=== PATIENT | male | born 1950 | race Caucasian/White ===

== ENCOUNTER → 2017-02-01 | Outpatient (CLI) | payer MEDICARE ==
--- NOTE | 2017-02-02 11:04 | RAD ---
Procedure: XR CHEST 2 VIEWS Exam Date: 02/01/2017 Ordering Provider: Raeann Gunn Clinical Indication: ESSENTIAL (PRIMARY) HYPERTENSION Comparison: 09/14/2009 Findings: Cardiac silhouette: Normal Pulmonary vasculature : Normal Mediastinal contour: Normal Aortic contour: Aortic calcification Focal lung consolidation: None Pleural effusion: None Pneumothorax: None Acute bony or soft tissue abnormality: None Impression: 1. No acute abnormalities in the chest. Electronically signed by: Lance Shah MD 02/02/2017 11:03 AM CDT
== END ==
LOC: LAB.O 09:16
PROVIDERS: ATTEND Nurse Practitioner Family
DX: I10 Essential (primary) hypertension (principal); F19.10 Other psychoactive substance abuse, uncomplicated; Z12.5 Encounter for screening for malignant neoplasm of prostate; Z13.220 Encounter for screening for lipoid disorders; Z13.29 Encounter for screening for other suspected endocrine disorder
CPT/HCPCS: 36415; 71020; 80053; 80061; 84443; 85025; 86803; 93005; G0103

== ENCOUNTER → 2017-04-10 | Outpatient (CLI) | payer MEDICARE | END | disposition home or self-care (01) | LOC: YCFC.O 08:28 | PROVIDERS: ATTEND Nurse Practitioner Family | DX: E03.9 Hypothyroidism, unspecified (principal) ==

== ENCOUNTER → 2018-05-16 | Outpatient (CLI) | payer MEDICARE | LOC: YCFC.O 08:37 | PROVIDERS: ATTEND Nurse Practitioner Family | DX: E03.9 Hypothyroidism, unspecified (principal); I10 Essential (primary) hypertension; Z12.5 Encounter for screening for malignant neoplasm of prostate | CPT/HCPCS: 36415; 80053; 84439; 84443; 85025; G0103 ==

== ENCOUNTER → 2018-05-28 | Outpatient (CLI) | payer MEDICARE | LOC: LAB.O 09:17 | PROVIDERS: ATTEND Nurse Practitioner Family | DX: R97.20 Elevated prostate specific antigen [PSA] (principal) ==

== ENCOUNTER → 2018-08-07 | Outpatient (CLI) | payer MEDICARE ==
--- NOTE | 2018-08-07 15:03 | RAD ---
EXAM DESCRIPTION: Abdomen 1 View CLINICAL HISTORY: 68 years Male, ABD PAIN COMPARISON: None. TECHNIQUE: 1 view of the abdomen was performed. FINDINGS: Multiple air distended bowel loops are identified with no evidence of bowel obstruction. Small amount of fecal material is identified. No abnormal calcifications are noted. IMPRESSION: No acute abnormality is noted in the abdomen. Electronically signed by: Shannan De La Torre MD 08/07/2018 3:01 PM [employer]
== END ==
LOC: LAB.O 13:17
PROVIDERS: ATTEND Family Medicine
DX: R53.83 Other fatigue (principal); R10.9 Unspecified abdominal pain; D64.9 Anemia, unspecified; I10 Essential (primary) hypertension; F17.200 Nicotine dependence, unspecified, uncomplicated; D51.9 Vitamin B12 deficiency anemia, unspecified; D55.0 Anemia due to glucose-6-phosphate dehydrogenase [G6PD] deficiency

== ENCOUNTER → 2018-09-21 | Outpatient (CLI) | payer MEDICARE, OTHER ==
--- NOTE | 2018-09-21 14:23 | CT ---
Procedure: CT LUNG SCREENING Exam Date: 09/21/2018 Ordering Provider: Cristopher Argueta Clinical Indication: HISTORY OF TOBACCO DEPENDENCY This patient meets eligibility criteria for low-dose CT lung cancer screening. Comparison: 02/01/2017 chest x-ray. Technique: Using a multislice scanner, sequential helical axial imaging was obtained in the thorax, 2.5 mm thickness, 2.5 mm separation, from the level of the thoracic inlet through the lung bases without IV contrast. A low dose protocol was utilized: CTDI: 1.76 mGy. 120. kVp. 45 mA. 2D sagittal and coronal reconstructed images, 6.0 mm thickness, were obtained. This exam was performed according to our departmental dose optimization program which includes use of automated exposure control, adjustment of the mA and/or kV according to patient size and/or use of iterative reconstruction technique. Nodule measurements under 10 mm are given as mean value of 3 axes diameters. FINDINGS: Lungs and large airways: 4 mm solid nodule versus focal pleural thickening posterior medial right lung apex on axial series 2, image 12. 2 mm calcified nodules associated with the lateral mid right horizontal fissure. No abnormal nodule, no mass, no focal infiltrate. Pleura and space: Bilateral pleural thickening with no effusion or pneumothorax. Mediastinum and clara: evaluation limited by low dose technique and lack of IV contrast. No enlarged lymph nodes or soft tissue masses. Heart and great vessels: Atherosclerotic calcifications of the aortic arch, coronary arteries, and descending thoracic aorta. Chest wall, lower neck, axillae: Evaluation also limited by same factors as described above. Negative. Upper abdomen: No free fluid or air in the included peritoneal space. Included adrenal glands and spleen normal size and density. Gallbladder partially visualized. Atherosclerotic calcifications of the proximal abdominal aorta. Osseous structures: Evaluation limited by low dose MIP technique. Spondylosis at multiple levels of thoracic spine. Bilateral arthrosis glenohumeral joints and sternoclavicular joints. IMPRESSION: 4 mm solid nodule in the right lung apex versus focal right apical pleural nodule. No abnormal nodules, masses, or focal infiltrates. Bilateral pleural thickening. [facility] Best Practice recommendations:. Please see below for Lung RADS category and FOLLOW-UP.* *Lung RADS category CATEGORY 2- Nodules with a very low likelihood (less than 1%) of becoming a clinically active cancer due to size or lack of growth. Nodules: Solid or part solid nodule(s) less than 6mm, new solid nodule less than 4mm. FOLLOW-UP: Continue annual screening with a Low Dose Chest CT in 12 months for re-evaluation. Electronically signed by: Alton Pena MD 09/21/2018 2:21 PM [facility]
== END ==
LOC: CT 10:00
PROVIDERS: ATTEND Family Medicine
DX: Z87.891 Personal history of nicotine dependence (principal); F17.218 Nicotine dependence, cigarettes, with other nicotine-induced disorders; R91.1 Solitary pulmonary nodule

== ENCOUNTER 2018-10-31 05:37 | Day surgery (SDC) | payer MEDICARE ==
[2018-10-31] MEDS ORDERED: LACTATED RINGERS 1,000 ML ONE (07:22)
[2018-10-31] MEDS: LACTATED RINGERS 1,000 ML IVS ONE ×2 (07:40→08:59)
[2018-10-31] MEDS ORDERED: fentaNYL CITRATE INJ 50 MCG/ML AMP ONE (07:59)
[2018-10-31 09:49] VITALS: BP 148/80; TEMP 97.9; O2SAT 99
[2018-10-31] MEDS ORDERED: LIDOCAINE 1% 10 ML VIAL INJ ONE (10:00)
[2018-10-31] MEDS ORDERED: PROPOFOL 200 MG/20 ML VIAL IV ONE (10:00)
--- NOTE | 2018-10-31 10:30 | OP ---
DATE OF PROCEDURE: 10/31/18 PREOPERATIVE DIAGNOSIS: 1. Iron deficiency anemia related to chronic blood loss. 2. Change in bowel habits. 3. Hematochezia. POSTOPERATIVE DIAGNOSIS: 1. Hemorrhagic gastritis. 2. Sigmoid and descending colonic diverticulosis. 3. Colonic polyps. 4. Internal hemorrhoids. PROCEDURE: 1. Esophagogastroduodenoscopy. 2. Colonoscopy. SURGEON: Glenn Hernandes MD ANESTHESIA: Monitored anesthesia care. ESTIMATED BLOOD LOSS: Less than 5 mL. COMPLICATIONS: None. PROCEDURE: The patient was placed in the left lateral decubitus position. A time-out was performed. After deep sedation was achieved, the Olympus standard upper endoscope was inserted through the oropharynx, into the proximal esophagus and advanced to the second portion of the duodenum under direct visualization. The endoscope was then progressively withdrawn, the duodenum, stomach and esophageal lumen were evaluated. Retroflexion was performed in the stomach. The endoscope was then withdrawn. The stretcher was rotated 180 degrees and we proceeded with the colonoscopy. A digital rectal exam was performed The Olympus adult colonoscope was inserted through anus into the rectum and advanced to the cecum under direct visualization. The terminal ileum was intubated. Photodocumentation of the terminal ileum, appendiceal orifice and ileocecal valve was performed. The endoscope was then progressively withdrawn and the total colonic lumen evaluated. Retroflexion was performed in the rectum. The patient's bowel preparation was good. The endoscope was then withdrawn and the procedure terminated. The patient tolerated the procedure well with no immediate complications. EGD FINDINGS: 1. The esophagus was normal. 2. Gastritis characterized by patchy mucosal edema, erythema and punctate areas of oozing were seen throughout the gastric body and antrum. The oozing was minimal and very mild. Random gastric biopsies were taken to rule out H. pylori. 3. The duodenum, including the bulb and first and second portions were unremarkable. COLONOSCOPY FINDINGS: 1. One sessile polyp measuring 5 mm was seen in the transverse colon. This polyp was removed with a cold snare and retrieved for pathology. 2. Two polyps were found in the sigmoid colon, both sessile, ranging in size from 3 to 6 mm. The polyps were removed with a cold snare and retrieved for pathology. 3. Severe diverticulosis was seen in the sigmoid colon, mild to moderate diverticulosis was seen in the descending colon. No evidence of bleeding or inflammation was noted. 4. Grade 2 non-bleeding internal hemorrhoids were seen upon retroflexion in the rectum. IMPRESSION: 1. Gastritis with mild oozing, biopsied. 2. Moderate to severe left sided diverticulosis. 3. Colonic polyps, removed. 4. Non-bleeding grade 2 internal hemorrhoids. RECOMMENDATIONS: 1. Okay to discharge home once the patient meets discharge criteria. 2. Resume prior diet. 3. Resume home medications. 4. Start once daily oral proton pump inhibitor such as Prilosec 20 mg once daily [id number]. 5. Await pathology results. 6. Repeat colonoscopy in 3 to 5 years depending on pathology results. 7. Followup with in GI clinic with Dr. Hernandes in 2 months. #[id number] [facility]
== END 2018-10-31 09:20 | disposition home or self-care (01) ==
LOC: AMB 05:37
PROVIDERS: ATTEND Internal Medicine Gastroenterology
DX: D50.0 Iron deficiency anemia secondary to blood loss (chronic) (principal); K29.51 Unspecified chronic gastritis with bleeding; D12.5 Benign neoplasm of sigmoid colon; D12.3 Benign neoplasm of transverse colon; K63.5 Polyp of colon; K57.30 Diverticulosis of large intestine without perforation or abscess without bleeding; K64.1 Second degree hemorrhoids; I10 Essential (primary) hypertension; F17.200 Nicotine dependence, unspecified, uncomplicated; Z79.899 Other long term (current) drug therapy
CPT/HCPCS: 00813; 43239; 45385; 88305; J3010; J3490; J7120

== ENCOUNTER → 2018-11-28 | Outpatient (CLI) | payer MEDICARE | LOC: LAB.O 10:40 | PROVIDERS: ATTEND Family Medicine | DX: Z86.19 Personal history of other infectious and parasitic diseases (principal) ==

== ENCOUNTER → 2018-12-24 | Outpatient (CLI) | payer MEDICARE ==
--- NOTE | 2018-12-24 10:44 | RAD ---
EXAM DESCRIPTION: Pelvis single AP view including both hips CLINICAL HISTORY: 68 years Male, left hip pain COMPARISON: None. FINDINGS: No fracture. No dislocation. Normal bony mineralization. IMPRESSION: Negative for fracture. Electronically signed by: Mata Whittaker MD 12/24/2018 10:42 AM CDT
--- NOTE | 2018-12-24 10:54 | RAD ---
EXAM DESCRIPTION: Knee,Left Complete CLINICAL HISTORY: 68 years, Male, left knee pain COMPARISON: None TECHNIQUE: Four views of the left knee FINDINGS: No fracture or dislocation. Bones appear normally mineralized with normal trabecular pattern. Narrowed appearance of medial compartment on frontal view with subchondral cyst formation in the medial femoral condyle and complete cartilage loss in the medial compartment. Lateral view shows normal position of the patella. Mild posterior superior and inferior patellar spurring. No suprapatellar knee joint effusion. Normal contour of quadriceps and patellar tendons. No abnormal patellar tilt or subluxation on patellar sunrise view. Patellofemoral joint appears narrowed. Prominent posterior patellar spurring medially and laterally. Irregularity of the anterior medial femoral trochlea with spurring. IMPRESSION: Degenerative osteoarthritic changes as described. Electronically signed by: Mata Whittaker MD 12/24/2018 10:52 AM CDT
== END ==
LOC: RAD 08:13
PROVIDERS: ATTEND Orthopaedic Surgery
DX: M17.12 Unilateral primary osteoarthritis, left knee (principal); M25.552 Pain in left hip

== ENCOUNTER → 2019-03-07 | Outpatient (CLI) | payer MEDICARE ==
--- NOTE | 2019-03-07 13:04 | US ---
EXAM DESCRIPTION: Breast,Left: Ultrasound. CLINICAL HISTORY: 69 yearsMaleLump in left breast. Sleeps with large dog which frequently hits him in the chest wall with head. No medication changes. COMPARISON: None. TECHNIQUE: Transcutaneous scanning of the bilateral breasts utilizing cavazos-scale and Doppler modes. Scanning performed by the contact lens assistant and Dr. Pena. FINDINGS: Ill-defined hypoechoic tissue behind the left nipple with no mass or margins. No cyst. Echogenic shadowing. Minimally vascular. Minimal nipple shadowing with no hypoechoic tissue retroareolar right breast. Trauma versus gynecomastia. IMPRESSION: BI-RADS CATEGORY: 3 - PROBABLY BENIGN. Management: Short interval (6-month) follow-up targeted left breast ultrasound or continued clinical surveillance.. The FINDINGS and the FOLLOW-UP plan were reviewed in person with the patient after the examination. Written communication explaining the IMPRESSION and FOLLOW-UP will be mailed to the patient and referring care provider. Electronically signed by: Alton Pena MD 03/07/2019 1:02 PM [employer]
== END ==
LOC: LAB.O 08:24
PROVIDERS: ATTEND Nurse Practitioner Family
DX: N63.42 Unspecified lump in left breast, subareolar (principal); I10 Essential (primary) hypertension; D64.9 Anemia, unspecified

== ENCOUNTER → 2020-01-21 | Outpatient (CLI) | payer MEDICARE | LOC: YCFC.O 11:59 | PROVIDERS: ATTEND Family Medicine | DX: I10 Essential (primary) hypertension (principal); D50.9 Iron deficiency anemia, unspecified; E03.9 Hypothyroidism, unspecified; R97.20 Elevated prostate specific antigen [PSA] ==